=== PATIENT | male | born 1950 | race Caucasian/White ===

== ENCOUNTER 2017-08-09 22:50 | Emergency (ER) | payer MEDICARE ==
[2014-08-18 13:49] VITALS: Wt 86.2 kg
[~2017-08-09 22:50] MED LIST: ACE325 PO; AMOX1TAB9 PO; AZIT600T13 PO; CLO1 PO; ESZO3TAB3 PO; GAB800PT PO; GABA-506 PO; IBUP1TAB PO; LAM25 PO; LAMO100T56 PO; LAMO200T46 PO; LOR1 PO; METO-259 PO; OXYC-689 PO; PER PO; PNEU0.5D3 IM; ROPI0.5T25 PO; ROSU10TA13 PO; TOPI-28 PO; TOPI-75 PO; TRAZ-133 PO; TRAZ-156 PO; TRAZ-163 PO; ZOLP-350 PO
--- NOTE | 2017-08-09 23:03 | ER Report ---
History and Physical Time Seen By : 23:03 HPI/ROS CHIEF COMPLAINT: short of breath, chest pain, dizziness. HISTORY OF PRESENT ILLNESS: This is a 67 year old male. he says he is not feeling well. He has a hard time telling me what is wrong. He says he is short of breath and needs oxygen. He is panicky when talking to me. Says it feels like when he had pneumonia in the past. He is tachypneic and tachycardic, but his blood pressure and oxygen saturations are normal. Oxygen saturation is 96%. He calmed down once we had put oxygen on him. He says he has a little bit of chest pain, sharp that comes and goes, nothing brings it on or makes it go away , not currently present while we are talking. He has some epigastric area discomfort as well, with some mild nausea. He denies having acid reflux symptoms tonight. he denies other abdominal pain. Has some occasional pains in his back. Feels dizzy tonight as well, but no headache. Has felt like he has fevers and chills. Poor appetite. REVIEW OF SYSTEMS: As above. Allergies: Coded Allergies: No Known Allergies (Verified Allergy, Mild, 01/20/12) Home Meds Active Scripts Ropinirole Hcl (ROPINIROLE HCL) 0.5 Mg Tablet, 1 TAB PO HS, #30 TAB 7 Refills Prov:NIKKO MARC MD 03/11/16 Gabapentin (NEURONTIN) 800 Mg Tab, 2 TAB PO BID, #360 TAB 3 Refills Prov:NIKKO MARC MD 10/30/15 Rosuvastatin Calcium (Rosuvastatin Calcium) 10 Mg Tablet, 1 TAB PO DAILY, #30 TAB 9 Refills Prov:NIKKO MARC MD 10/29/15 Reported Medications Trazodone Hcl (TRAZODONE HCL) 100 Mg Tablet, 100 MG PO QHS, TAB 08/09/17 Eszopiclone (Eszopiclone) 3 Mg Tablet, 1 TAB PO HS 10/22/15 Topiramate (TOPIRAMATE) 100 Mg Tablet, 1 TAB PO BID 10/22/15 Lamotrigine (LAMICTAL) 200 Mg Tablet, 1 TAB PO BID 10/22/15 Lamotrigine (Lamictal) 100 Mg Tablet, 200 MG PO BID, 0 Refills 11/10/09 Discontinued Reported Medications Lamotrigine (LAMICTAL) 100 Mg Tablet, 100 MG PO BID 08/09/17 Discontinued Scripts Trazodone Hcl (TRAZODONE HCL) 50 Mg Tablet, 50 MG PO QHS, #90 TAB 3 Refills Prov:NIKKO MARC 03/12/16 Past Medical/Surgical History 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 Reviewed Nurses Notes: Yes Hx Smoking: No Smoking Status: Former Smoker Exposure to Second Hand Smoke?: No Hx Substance Use Disorder: No Hx Alcohol Use: No Constitutional Vital Sign - Last 24 Hours 08/09/17 08/09/17 08/09/17 08/09/17 22:55 22:56 23:00 23:05 Temp 97.6 Pulse 98 92 Resp 25 B/P (MAP) 178/87 (117) 178/87 154/94 (114) Pulse Ox 90 93 O2 Delivery Room Air 08/09/17 08/09/17 08/09/17 08/09/17 23:20 23:28 23:30 23:44 Pulse 85 Resp 28 B/P (MAP) 150/86 (107) 171/105 (127) Pulse Ox 100 O2 Flow Rate 2.0 08/09/17 08/10/17 08/10/17 08/10/17 23:50 00:00 00:10 00:25 Pulse 78 86 79 Resp 21 19 B/P (MAP) 153/87 (109) Pulse Ox 90 97 97 08/10/17 08/10/17 08/10/17 08/10/17 01:00 01:30 01:31 01:36 Pulse 75 74 77 Pulse Ox 97 97 97 08/10/17 01:40 B/P (MAP) 146/85 (105) Physical Exam General Appearance: The patient is alert. Acute anxiety. Eyes: Pupils are equal, round. Reactive to light. No pallor, injection or icterus. Extraocular movements are intact. ENT: Mucous membranes are moist. Normal oral mucosa. Posterior oropharynx is normal. Normal tympanic membranes and canals. Neck: Supple and non tender. Respiratory: Lungs are clear to auscultation. Initially and anxiety, but calms down once he has a nasal cannula in place. There are no retractions or accessory muscle use. Cardiovascular: Initially tachycardia and a normal rhythm. No murmurs, gallops or rubs. Normal capillary refill. No edema. Gastrointestinal: Abdomen is soft and non tender. Nondistended. Normal active bowel sounds. No costovertebral angle tenderness with percussion. Neurological: Alert and oriented x3. Skin: Warm and dry. Musculoskeletal: Extremities are nontender. Full range of motion. No tenderness in palpation of the cervical, thoracic and lumbar spine. DIFFERENTIAL DIAGNOSIS: After history and physical exam, differential diagnosis was considered for chest pain and shortness of breath including but not limited to anxiety, myocardial ischemia, pericarditis pulmonary embolus, chest wall pain , pleural inflammation and pulmonary infectious causes. Medical Decision Making Data Points Result Diagram: 08/09/17 2326 08/09/17 2326 Laboratory Hematology Test 08/09/17 23:26 Red Blood Count 5.05 M/uL (4.00-5.60) Mean Corpuscular Volume 89.9 fL (80.0-96.0) Mean Corpuscular Hemoglobin 30.7 pg (26.0-33.0) Mean Corpuscular Hemoglobin Concent 34.2 g/dL (32.0-36.0) Red Cell Distribution Width 13.2 % (11.5-14.5) Mean Platelet Volume 8.3 fL (7.2-11.1) Neutrophils (%) (Auto) 68.1 % (39.4-72.5) Lymphocytes (%) (Auto) 17.9 % (17.6-49.6) Monocytes (%) (Auto) 6.4 % (4.1-12.4) Eosinophils (%) (Auto) 6.5 % (0.4-6.7) Basophils (%) (Auto) 1.1 % (0.3-1.4) Nucleated RBC Relative Count (auto) 0.0 /100WBC Neutrophils # (Auto) 4.9 K/uL (2.0-7.4) Lymphocytes # (Auto) 1.3 K/uL (1.3-3.6) Monocytes # (Auto) 0.5 K/uL (0.3-1.0) Eosinophils # (Auto) 0.5 K/uL (0.0-0.5) Basophils # (Auto) 0.1 K/uL (0.0-0.1) Nucleated RBC Absolute Count (auto) 0.00 K/uL D-Dimer Quantitative (PE/DVT) 0.99 ug/ml (0-0.50) Sodium Level 137 mmol/L (137-145) Potassium Level 3.6 mmol/L (3.5-5.0) Chloride Level 101 mmol/L (98-107) Carbon Dioxide Level 22 mmol/L (22-30) Blood Urea Nitrogen 12 mg/dl (9-21) Creatinine 1.10 mg/dl (0.66-1.25) Glomerular Filtration Rate Calc > 60.0 Random Glucose 121 mg/dl (75-110) Lactate 1.3 mmol/L (0.7-2.1) Calcium Level 9.5 mg/dl (8.4-10.2) Total Bilirubin 0.3 mg/dl (0.2-1.3) Aspartate Amino Transf (AST/SGOT) 16 U/L (0-35) Alanine Aminotransferase (ALT/SGPT) 28 U/L (0-56) Alkaline Phosphatase 86 U/L (0-126) Troponin I < 0.012 ng/ml B-Type Natriuretic Peptide 20 pg/ml (0-100) Total Protein 6.3 gm/dl (6.3-8.2) Albumin 3.8 g/dl (3.5-5.0) Chemistry Test 08/09/17 23:26 White Blood Count 7.2 k/uL (4.5-11.0) Red Blood Count 5.05 M/uL (4.00-5.60) Hemoglobin 15.5 g/dL (14.0-18.0) Hematocrit 45.4 % (42.0-52.0) Mean Corpuscular Volume 89.9 fL (80.0-96.0) Mean Corpuscular Hemoglobin 30.7 pg (26.0-33.0) Mean Corpuscular Hemoglobin Concent 34.2 g/dL (32.0-36.0) Red Cell Distribution Width 13.2 % (11.5-14.5) Platelet Count 224 K/uL (150-450) Mean Platelet Volume 8.3 fL (7.2-11.1) Neutrophils (%) (Auto) 68.1 % (39.4-72.5) Lymphocytes (%) (Auto) 17.9 % (17.6-49.6) Monocytes (%) (Auto) 6.4 % (4.1-12.4) Eosinophils (%) (Auto) 6.5 % (0.4-6.7) Basophils (%) (Auto) 1.1 % (0.3-1.4) Nucleated RBC Relative Count (auto) 0.0 /100WBC Neutrophils # (Auto) 4.9 K/uL (2.0-7.4) Lymphocytes # (Auto) 1.3 K/uL (1.3-3.6) Monocytes # (Auto) 0.5 K/uL (0.3-1.0) Eosinophils # (Auto) 0.5 K/uL (0.0-0.5) Basophils # (Auto) 0.1 K/uL (0.0-0.1) Nucleated RBC Absolute Count (auto) 0.00 K/uL D-Dimer Quantitative (PE/DVT) 0.99 ug/ml (0-0.50) Glomerular Filtration Rate Calc > 60.0 Lactate 1.3 mmol/L (0.7-2.1) Calcium Level 9.5 mg/dl (8.4-10.2) Total Bilirubin 0.3 mg/dl (0.2-1.3) Aspartate Amino Transf (AST/SGOT) 16 U/L (0-35) Alanine Aminotransferase (ALT/SGPT) 28 U/L (0-56) Alkaline Phosphatase 86 U/L (0-126) Troponin I < 0.012 ng/ml B-Type Natriuretic Peptide 20 pg/ml (0-100) Total Protein 6.3 gm/dl (6.3-8.2) Albumin 3.8 g/dl (3.5-5.0) Coagulation Test 08/09/17 23:26 D-Dimer Quantitative (PE/DVT) 0.99 ug/ml EKG/Imaging EKG Interpretation 12 lead EKG: Rhythm: normal sinus rhythm with sinus arrhythmia, rate 76 [place]: normal QRS: Incomplete right bundle branch block ST segments: Significant artifact but no ST elevation or depression noted Imaging CHEST PA AND LAT HISTORY: Shortness of breath and chest pain. History of pneumonia. COMPARISON: 01/16/2013 and studies dating to 11/10/2007. TECHNIQUE: PA and lateral views of the chest. FINDINGS: Pulmonary: There is subsegmental scarring or atelectasis in the lingula, unchanged. There is linear scarring or atelectasis in the right middle lobe. There is no pneumothorax or pleural effusion. Cardiomediastinal: Cardiac and mediastinal silhouettes are within normal limits. There is mild aortic calcification. Bones/soft tissues: No acute osseous abnormality. There are numerous Schmorl nodes. There is stable mild wedging of T7. The visible abdomen is normal. IMPRESSION: 1. Atelectasis and/or scarring in the right middle lobe and lingula. No pneumonia. Report Dictated By: Kera Gregory at 08/10/2017 12:04 AM CTA CHEST W CNTR (PULM ANG) HISTORY: Shortness of breath. Elevated d-dimer. COMPARISON: Chest x-ray same evening. Prior CT pulmonary angiogram 01/16/2013. TECHNIQUE: Pulmonary embolus protocol - Thin-slice axial imaging of the chest was performed during maximal pulmonary arterial opacification with intravenous nonionic iodinated contrast. 3D coronal slab MIPs and 2D reconstructions in the coronal and sagittal planes were performed to aid in pulmonary embolus detection. Cad Draftsman images have been stored on PACS. One of the following dose optimization techniques was utilized in the performance of this exam: Automated exposure control; adjustment of the mA and/ or kV according to the patient's size; or use of an iterative reconstruction technique. Specific details can be referenced in the facility's radiology CT exam operational policy. CONTRAST: 75 mL of IV Isovue-370. FINDINGS: Pulmonary arteries: There is adequate opacification of the pulmonary arteries to the segmental branches. There are no filling defects in the visible pulmonary arteries. Pulmonary arteries are normal in caliber. Thoracic inlet: Normal. Aorta: No aneurysm or dissection. There is mild atherosclerosis of the aorta. Heart / Pericardium: The heart is normal. There is no ventricular septal deviation. There is no pericardial effusion. There is no coronary artery calcification. Mediastinum / Leigh: Normal mediastinum. No lymphadenopathy. Lungs / Pleura: No pleural effusion. There is mild atelectasis at the lung bases. No pneumothorax. The airways are normal. Upper abdomen: Normal. Musculoskeletal/vertebra/body wall: There is a healed right clavicle fracture. There is a healed sternal fracture. There are healed ninth and tenth posterior right rib fractures. There is mild degenerative change of the spine. There are Schmorl nodes deforming the superior endplates of T6-T9, unchanged. No listhesis. IMPRESSION: 1. No pulmonary embolism. 2. Mild bibasilar atelectasis. Report Dictated By: Kera Gregory at 08/10/2017 1:18 AM ED Course/Re-evaluation Clinical Indication for ER IV: Hydration, IV Access ED Course Initial workup negative other than D-dimer. Troponin and EKG negative. Negative CBC, CMP, chest x-ray. CTA done and negative for blood clot. Vitals normal even without the oxygen. It appeared like alot of this was due to anxiety, and cannot see other pathology at this point. Would recommend follow-up with Dr. Marc. Return to the ER for further evaluation if worsening. Decision to Disposition Date: August 10, 2017 Decision to Disposition Time: 01:51 Depart Departure Latest Vital Signs Vital Signs Date Time Temp Pulse Resp B/P (MAP) Pulse Ox O2 Delivery O2 Flow Rate FiO2 08/10/17 01:40 146/85 (105) 08/10/17 01:36 77 97 08/10/17 00:25 19 08/09/17 23:28 2.0 08/09/17 22:56 97.6 Room Air Impression: Primary Impression: Shortness of breath Additional Impression: Dizziness Condition: Improved Disposition: HOME OR SELF-CARE Referrals: NIKKO MARC MD (PCP) Patient Instructions: Dizziness (ED), Dyspnea (ED) Additional Instructions: The evaluation done in the ER tonight did not show any problems. There was no sign of heart attack. There was no sign of blood clots. No pneumonia on imaging. Your labs were negative as well. Please call Dr. Marc's office tomorrow to arrange a follow-up visit with her. Discuss further testing such as a stress test with her. Problem Qualifiers CAROLINE ZHENG MD August 09, 2017 23:03
[2017-08-09] MEDS ORDERED: TRAZ-163 PO (23:06)
[2017-08-09] MEDS ORDERED: LAMO100T56 PO (23:06)
[2017-08-09 23:38] LABS: PLATELET COUNT, AUTOMATED 224 K/uL (150-450)
--- NOTE | 2017-08-10 00:10 | RADIOLOGY IMAGING REPORT ---
FACILITY: [facility] PATIENT NAME: Janet Bautista : 1950 MR: [id number] V: [id number] EXAM DATE: ORDERING PHYSICIAN: CAROLINE ZHENG TECHNOLOGIST: Location: [facility] Patient: Janet Bautista : 1950 Visit/Account:[id number] Date of Sevice: 08/09/2017 CHEST PA AND LAT HISTORY: Shortness of breath and chest pain. History of pneumonia. COMPARISON: 01/16/2013 and studies dating to 11/10/2007. TECHNIQUE: PA and lateral views of the chest. FINDINGS: Pulmonary: There is subsegmental scarring or atelectasis in the lingula, unchanged. There is linear s carring or atelectasis in the right middle lobe. There is no pneumothorax or pleural effusion. Cardiomediastinal: Cardiac and mediastinal silhouettes are within normal limits. There is mild aortic calcification. Bones/soft tissues: No acute osseous abnormality. There are numerous Schmorl nodes. There is stable m ild wedging of T7. The visible abdomen is normal. IMPRESSION: 1. Atelectasis and/or scarring in the right middle lobe and lingula. No pneumonia. Report Dictated By: Kera Gregory at 08/10/2017 12:04 AM Report E-Signed By: Kera Gregory at 08/10/2017 12:06 AM WSN:[id number]
[2017-08-10] MEDS ORDERED: NS 0.9% 150 ML BAG 150 ML ONE (00:25)
[2017-08-10] MEDS ORDERED: IOPAMIDOL 76% 75 ML INFUS BTL 75 ML ONE (00:25)
--- NOTE | 2017-08-10 01:06 | EKG ---
FACILITY: [facility] [place] PATIENT NAME: DONALDO PANTOJA : [id number] MR: [id number] V: [id number] EXAM DATE: ORDERING PHYSICIAN: CAROLINE ZHENG TECHNOLOGIST: RODRÍGUEZ Test Reason : SOB Blood Pressure : / mmHG Vent. Rate : 076 BPM Atrial Rate : 076 BPM P-R Int : 178 ms QRS Dur : 094 ms QT Int : 376 ms P-R-T Axes : 073 026 041 degrees QTc Int : 423 ms Sinus rhythm Nonspecific interventricular conduction delay Artifact in several leads - repeat if needed Abnormal ECG Confirmed by RUTH GALICIA ([id number] on 08/10/2017 6:27:27 AM Referred By: Confirmed By:RUTH GALICIA
--- NOTE | 2017-08-10 01:33 | RADIOLOGY IMAGING REPORT ---
FACILITY: [facility] [place] PATIENT NAME: Janet Bautista : 1950 MR: [id number] V: [id number] EXAM DATE: ORDERING PHYSICIAN: CAROLINE ZHENG TECHNOLOGIST: Location: [facility] Patient: Janet Bautista : 1950 Visit/Account:[id number] Date of Sevice: 08/10/2017 CTA CHEST W CNTR (PULM ANG) HISTORY: Shortness of breath. Elevated d-dimer. COMPARISON: Chest x-ray same evening. Prior CT pulmonary angiogram 01/16/2013. TECHNIQUE: Pulmonary embolus protocol - Thin-slice axial imaging of the chest was performed during ma ximal pulmonary arterial opacification with intravenous nonionic iodinated contrast. 3D coronal slab MIPs and 2D reconstructions in the coronal and sagittal planes were performed to aid in pulmonary emb olus detection. Machine Adjuster Helper images have been stored on PACS. One of the following dose optimization techniques was utilized in the performance of this exam: Autom ated exposure control; adjustment of the mA and/or kV according to the patient's size; or use of an i terative reconstruction technique. Specific details can be referenced in the facility's radiology CT exam operational policy. CONTRAST: 75 mL of IV Isovue-370. FINDINGS: Pulmonary arteries: There is adequate opacification of the pulmonary arteries to the segmental branch es. There are no filling defects in the visible pulmonary arteries. Pulmonary arteries are normal in caliber. Thoracic inlet: Normal. Aorta: No aneurysm or dissection. There is mild atherosclerosis of the aorta. Heart / Pericardium: The heart is normal. There is no ventricular septal deviation. There is no peric ardial effusion. There is no coronary artery calcification. Mediastinum / Leigh: Normal mediastinum. No lymphadenopathy. Lungs / Pleura: No pleural effusion. There is mild atelectasis at the lung bases. No pneumothorax. Th e airways are normal. Upper abdomen: Normal. Musculoskeletal/vertebra/body wall: There is a healed right clavicle fracture. There is a healed ster nal fracture. There are healed ninth and tenth posterior right rib fractures. There is mild degenerat miriam change of the spine. There are Schmorl nodes deforming the superior endplates of T6-T9, unchanged . No listhesis. IMPRESSION: 1. No pulmonary embolism. 2. Mild bibasilar atelectasis. Report Dictated By: Kera Gregory at 08/10/2017 1:18 AM Report E-Signed By: Kera Gregory at 08/10/2017 1:30 AM WSN:[id number]
[2017-08-10 01:40] VITALS: BP 146/85
== END 2017-08-10 02:00 | disposition home or self-care (01) ==
LOC: ER 23:13
DX: R06.02 Shortness of breath (principal); R42 Dizziness and giddiness
CPT/HCPCS: 71046; 71275; 83605; 83880; 84484; 85025; 85379; 93005; 99284; Q9967; 82040; 82247; 82310; 82374; 82435; 82565; 82947; 84075; 84132; 84155; 84295; 84450; 84460; 84520

== ENCOUNTER 2017-09-16 10:00 | Outpatient (RCR) | payer MEDICARE ==
[2014-08-18 13:49] VITALS: BMI 27.7
--- NOTE | 2017-09-14 14:28 | OT ECF NOTE ---
SUBJECTIVE: Janet is a 67 year-old right hand dominant male presenting to outpatient OT with essential tremor and trial on weighted silverware. Pt reports increased difficulty with ADLs and IADLs secondary to essential tremor. Pt is also concerned regarding slickness of fingers and difficulty picking up objects. Previous Medical History: Please refer to EMR Current Limitations: Decreased activity tolerance, Decreased ADLs, Decreased IADLs Home Environment: Pt reports no concerns with home environment. Does not drive, utilizes public transportation and bicycle. OBJECTIVE: Pt is right hand dominate. Pt reports the essential tremors primarily limit handwriting and feeding. Pt is unsure if there is a time of day or activity that exacerbates the tremors. ROM: Pt reports no concerns with B UE ROM/strength Right Left Shoulder Flexion WFL WFL Shoulder Extension WFL WFL Shoulder Abduction WFL WFL Elbow Flexion WFL WFL Wrist Extension WFL WFL Strength: Pt reports no concerns with B UE ROM/strength MMT: Right Left Shoulder Flexion 5/5 5/5 Shoulder Extension 5/5 5/5 Shoulder Abduction 5/5 5/5 Elbow Flexion 5/5 5/5 Wrist Extension 5/5 5/5 (5= normal, 4= good, 3= fair, 2= poor, 1= trace) Employee Relations Representative Right= 85# (Age/gender normative=91.1#) Left= 90# (Age/gender normative=76.8#) Sensation: Pt reports no concerns with sensation Special Test: 9 Hole Peg Test (dexterity) -Limited by decreased emergency room physician assistant on pads of digits Right= 40 seconds (Age/gender normative=20.7seconds) Left= 40 seconds (Age/gender normative=22.9seconds) Lateral Pinch Right=20# (Age/gender normative=23.4#) Left=22# (Age/gender normative=22.0#) Tip Pinch Right=16# (Age/gender normative=21.4#) Left=16# (Age/gender normative=21.2#) Visual: Pt reports no visual deficits ASSESSMENT Janet presents with B UE strength and dexterity WFL. Pt does present with notable essential tremor during writing, bringing cup to mouth and picking up objects. Tremor is not present at rest. Reviewed adaptive equipment and compensatory strategies to minimize essential tremor. Interventions included weighted objects, built-up objects, methods for adapting emergency room physician assistant, and stabilization of UE. Pt will benefit from an additional treatment session to assess intervention implementation and further questions/concerns. Short Term Goals 1. Pt will recognize adaptive methods/equipment to compensate for essential tremor. PLAN: 2x/week x 2 weeks Thank you for this referral. If you have any questions, concerns, or comments about this report or plan, please contact me at [phone]. Maryanne Gallego MS, OTR/L Occupational Therapist [facility]
--- NOTE | 2017-09-16 12:58 | OT DISCHARGE SUMMARY ---
SUBJECTIVE: Janet is a 67 year-old right hand dominant male presenting to outpatient OT with essential tremor and trial on weighted silverware. Pt reports increased difficulty with ADLs and IADLs secondary to essential tremor. Pt is also concerned regarding slickness of fingers and difficulty picking up objects. Previous Medical History: Please refer to EMR Home Environment: Pt reports no concerns with home environment. Does not drive, utilizes public transportation and bicycle. OBJECTIVE: Pt is right hand dominate. Pt reports the essential tremors primarily limit handwriting and feeding. Pt is unsure if there is a time of day or activity that exacerbates the tremors. ROM: Pt reports no concerns with B UE ROM/strength Right Left Shoulder Flexion WFL WFL Shoulder Extension WFL WFL Shoulder Abduction WFL WFL Elbow Flexion WFL WFL Wrist Extension WFL WFL Strength: Pt reports no concerns with B UE ROM/strength MMT: Right Left Shoulder Flexion 5/5 5/5 Shoulder Extension 5/5 5/5 Shoulder Abduction 5/5 5/5 Elbow Flexion 5/5 5/5 Wrist Extension 5/5 5/5 (5= normal, 4= good, 3= fair, 2= poor, 1= trace) Forestry Faculty Member Right= 85# (Age/gender normative=91.1#) Left= 90# (Age/gender normative=76.8#) Sensation: Pt reports no concerns with sensation Special Test: 9 Hole Peg Test (dexterity) -Limited by decreased portable canteen operator on pads of digits Right= 40 seconds (Age/gender normative=20.7seconds) Left= 40 seconds (Age/gender normative=22.9seconds) Lateral Pinch Right=20# (Age/gender normative=23.4#) Left=22# (Age/gender normative=22.0#) Tip Pinch Right=16# (Age/gender normative=21.4#) Left=16# (Age/gender normative=21.2#) Visual: Pt reports no visual deficits ASSESSMENT Reviewed handout regarding strategies to reduce tremor. Trialed various AE ( weighted silverware/built-up silverware, additional portable canteen operator on silverware. Trialed various AE for writing (weighted pens, built-up pens, and additional portable canteen operator on pens). Pt with notable improvements in tremor utilizing weighted equipment and equipment with additional portable canteen operator. Ideas provided such as coban, shelf liner, and wrist weights to adapt tools. Pt verbalized understanding and appreciation to implement recommendations.Pt reports he has created his own weight silverware and is noticing a reduction in tremor and (I) with feeding. Short Term Goals 1. Pt will recognize adaptive methods/equipment to compensate for essential tremor. GOAL MET. PLAN: Pt agreeable to discharge from OT services and implementation of education Thank you for this referral. If you have any questions, concerns, or comments about this report or plan, please contact me at [phone]. Maryanne Gallego MS, OTR/L Occupational Therapist [facility]
== END 2017-09-16 18:00 | disposition home or self-care (01) ==
LOC: OT 10:00
PROVIDERS: ATTEND Student in an Organized Health Care Education/Training Program
DX: G25.0 Essential tremor (principal)
CPT/HCPCS: 97165